=== PATIENT | female | born 1950 | race Caucasian/White ===

== ENCOUNTER 2017-10-04 10:36 | Day surgery (SDC) | payer OTHER ==
--- NOTE | 2017-10-04 10:47 | PDGENHP ---
History & Physical Chief Complaint: BL foot pain History of Present Illness: 66 y/o with h/o BL progressive 1st MTP pain Pertinent Past, Social, Family History: PMH - osteoporosis. SH - No Tobacco. FH - non contrib Relevant Physical Exam: Head - Normocephalic. Chest -CTA. Heart - RRR. Abd - S,NT,ND. EXT - Tender, Decreased ROM BL 1st MTP Cardiorespiratory Assessment: RRR, No murmer Assessment and Plan Assessment: BL Hallux Rigidus BL gastroc Contracture Plan: BL 1st MTP cheilectomy/debrident, implant hemiarthroplasty BL gastroc Recession
[2017-10-04] MEDS ORDERED: CLINDAMYCIN 600 MG/DEXTROSE 50 ML IV ONE (10:51)
[2017-10-04] MEDS ORDERED: LIDOCAINE 1% 2 ML INJ ONE (11:09)
[2017-10-04] MEDS ORDERED: LR 1,000 ML IV ONE (11:16)
[2017-10-04] MEDS ORDERED: LIDOCAINE 1% 2 ML INJ ID PRN (11:16)
[2017-10-04] MEDS ORDERED: BUPIVACAINE 0.5% 10 ML SDV ONE ×3 (11:32→14:08)
[2017-10-04 11:37] VITALS: PULSE 63
[2017-10-04] MEDS ORDERED: fentaNYL 100 MCG/2 ML INJ ONE ×3 (12:06→14:59)
[2017-10-04] MEDS ORDERED: PROPOFOL 200 MG/20 ML VIAL ONE (12:06)
[2017-10-04] MEDS ORDERED: ONDANSETRON 4 MG/2 ML VIAL ONE (12:07)
[2017-10-04] MEDS ORDERED: DEXAMETHASONE 4 MG/ML VIAL ONE (12:07)
[2017-10-04] MEDS ORDERED: LIDOCAINE 2% 5 ML SDV ONE (12:08)
[2017-10-04] MEDS ORDERED: ROCURONIUM 50 MG/5 ML VIAL ONE (12:38)
--- NOTE | 2017-10-04 12:47 | PDANEPAE ---
ANE History of Present Illness bilateral cheilectomy, gastroc release ANE Past Medical History - Cardiovascular History Hx Hypertension: No Hx Arrhythmias: No Hx Chest Pain: No Hx Coronary Artery / Peripheral Vascular Disease: No Hx CHF / Valvular Disease: No Hx Palpitations: No Cardiovascular History Comment: ?heart murmur - Pulmonary History Hx COPD: No Hx Asthma/Reactive Airway Disease: Yes Hx Recent Upper Respiratory Infection: No Hx Oxygen in Use at Home: No Hx Sleep Apnea: No Sleep Apnea Screening Result - Last Documented: Negative Pulmonary History Comment: asthma triggers smoke - Neurologic History Hx Cerebrovascular Accident: No Hx Seizures: No Hx Dementia: No - Endocrine History Hx Diabetes: No - Renal History Hx Renal Disorders: No - Liver History Hx Hepatic Disorders: No - Neurological & Psychiatric Hx Hx Neurological and Psychiatric Disorders: No - Cancer History Hx Cancer: No - Congenital Disorder History Hx Congenital Disorders: No - GI History Hx Gastrointestinal Disorders: Yes Gastrointestinal History Comment: reflux, IBS - Other Health History Other Health History: none - Chronic Pain History Chronic Pain: Yes (lower back pain) - Surgical History Prior Surgeries: shoulder replacement 2013 ANE Review of Systems Review of Systems: - Exercise capacity METS (RN): 5 METS ANE Patient History - Allergies Allergies/Adverse Reactions: Penicillins Allergy (Severe, Verified 09/27/17 10:43) Other-Enter Comments - Home Medications Home medications: home medication list seen and reviewed Home Medications: Aspirin 81mg (*) 09/27/17 [Last Taken 09/27/17] B-12 09/27/17 [Last Taken 09/27/17] Boniva 09/27/17 [Last Taken 09/16/17] Calcium 1,000 + D3 Caplet 09/27/17 [Last Taken 09/27/17] Coq10 09/27/17 [Last Taken 09/27/17] - NPO status NPO Since - Liquids (Date): 10/04/17 NPO Since - Liquids (Time): 07:00 NPO Since - Solids (Date): 10/03/17 NPO Since - Solids (Time): 21:00 - Smoking Hx Smoking Status: Never smoked - Family Anes Hx Family Hx Anesthesia Complications: none ANE Labs/Vital Signs - Vital Signs Blood Pressure: 124/79 Heart Rate: 63 Respiratory Rate: 18 O2 Sat (%): 92 Height: 157.48 cm Weight: 58.06 kg ANE Physical Exam - Airway Neck exam: FROM Mallampati Score: Class 2 Mouth exam: small mouth opening - Pulmonary Pulmonary: no respiratory distress - Cardiovascular Cardiovascular: regular rate and rhythym - ASA Status ASA Status: II ANE Anesthesia Plan Anesthesia Plan: general endotracheal anesthesia Urgent/Emergent Case: Yu velasco completed preop but documented later for safe timely pt care
[2017-10-04] MEDS ORDERED: SUGAMMADEX SODIUM 200 MG/2 ML VIAL IVP ONE (12:50)
[2017-10-04] MEDS ORDERED: KETOROLAC 30 MG/1 ML SDV ONE (12:50)
[2017-10-04 14:32] VITALS: TEMP 97.3
--- NOTE | 2017-10-04 14:32 | POSTOPPROG ---
Post Op Note Date of Operation: 10/04/17 Surgeon: Robetr Marsh Anesthesia: GET(General Endotracheal) Pre-op Diagnosis: BL Hallux Rigidus, BL gastroc contracture Post-op Diagnosis: same Procedure: BL 1st MTP, BL Gastroc Recession, BL medial cuneiform osteotomy Inf/Abcess present in the surg proc area at time of surgery?: No EBL: Minimal
[2017-10-04] MEDS ORDERED: HYDROCODONE/APAP 5/325 TAB PO PRN ×2 (15:03→16:25)
[2017-10-04] MEDS ORDERED: HYDROmorphONE/DILAUDID 1 MG/ML INJ IVP PRN ×2 (15:03→16:25)
[2017-10-04] MEDS ORDERED: LR 500 ML IV PRN ×2 (15:03→16:25)
[2017-10-04] MEDS ORDERED: NALOXONE HCL 0.4 MG/ML INJ IVP PRN ×2 (15:03→16:25)
[2017-10-04] MEDS ORDERED: ALBUTEROL 3 ML DEYVIAL IH PRN ×2 (15:03→16:25)
[2017-10-04] MEDS ORDERED: PROMETHAZINE HCL 25 MG/ML INJ IVP PRN (15:03)
[2017-10-04] MEDS ORDERED: fentaNYL 100 MCG/2 ML INJ IVP PRN ×2 (15:03→16:25)
[2017-10-04] MEDS ORDERED: OXYCODONE/APAP 5/325 TAB PO PRN ×2 (15:03→16:25)
[2017-10-04] MEDS ORDERED: ACETAMINOPHEN 500 MG TAB PO PRN ×2 (15:03→16:25)
[2017-10-04] MEDS ORDERED: ONDANSETRON 4 MG/2 ML VIAL IVP PRN ×2 (15:03→16:25)
--- NOTE | 2017-10-04 15:04 | POSTANESTH ---
Post Anesthetic Evaluation Cardiovascular Status: Normal, Stable Respiratory Status: Normal, Stable Level of Consciousness/Mental Status: Can Participate in Eval Pain Control: Adequate, Prn Tx Ordered Nausea/Vomiting Control: Adequate, Prn Tx Ordered Complications Possibly Related to Anesthesia: None Noted
[2017-10-04 17:13] VITALS: BP 133/91; RESP 15; O2SAT 93
--- NOTE | 2017-10-04 17:19 | GOP ---
[f rep st] OPERATIVE REPORT DATE OF OPERATION: 10/04/2017 SURGEON: Robert Marsh MD ANESTHESIA: General PREOPERATIVE DIAGNOSIS: 1. Bilateral hallux rigidus. 2. Bilateral elevated 1st ray. 3. Bilateral gastrocnemius contracture. POSTOPERATIVE DIAGNOSIS: 1. Bilateral hallux rigidus. 2. Bilateral elevated 1st ray. 3. Bilateral gastrocnemius contracture. PROCEDURE PERFORMED: 1. Bilateral 1st metatarsophalangeal tylectomy and debridement. 2. Bilateral 1st metatarsophalangeal implant hemiarthroplasty (Cartiva). 3. Bilateral gastrocnemius recession. 4. Bilateral medial cuneiform osteotomy. 5. Intraoperative use of fluoroscopy. FINDINGS: ESTIMATED BLOOD LOSS: Minimal. INDICATIONS: Patient is a 66-year-old with a history of bilateral progressive medial forefoot pain. Clinically and radiographically, she is noted to have advanced hallux rigidus. Based on her persist ence of symptoms refractory to nonoperative treatment, she was interested in pursuing operative treat ment. From an operative standpoint, treatment options, including arthrodesis and implant hemiarthrop lasty were discussed with anticipated risks and benefits of both. The patient elected to pursue impl ant hemiarthroplasty (Cartiva). The patient acknowledged she understood the potential risks of the o peration, including but not limited to, bleeding, infection, neurovascular damage including loss of l imb function, malunion, nonunion, need for implant removal and conversion to arthrodesis, persistence of pain and limitations despite operative treatment, and the anesthetic risks. She acknowledged she understood the potential risks, planned procedure, and postoperative plan well, and had all question s answered prior to surgery. She gave her consent for the operative procedure. DESCRIPTION OF PROCEDURE: The patient was brought to the operating room after IV antibiotics were ad ministered. She was placed in a supine position where general anesthetic was administered. Tourniqu ets were placed on bilateral thighs and bilateral lower extremities were prepped and draped in standa rd sterile fashion. Attention was initially directed toward the right. After marking the incisions, an Rommel wrap exsanguination, tourniquet was inflated to 250. Gastrocnemius recession was performed. A longitudinal incision was made along the medial aspect of the lower leg at the level of the mid moore bstance of the gastrocnemius. Skin and subcutaneous tissue were sharply incised. Sharp dissection w as carried through the superficial posterior compartment fascia in line with the skin incision. The interval between the gastroc and soleus was bluntly dissected. Utilizing a speculum for retraction, the anterior tendon of the gastroc was transversely incised. Favorable dorsiflexion was achieved. T he superficial posterior compartment fascia and subcutaneous tissue closed with 3-0 Vicryl suture in an interrupted fashion. Skin was closed with 4-0 nylon interrupted sutures. Attention was then directed toward the 1st MTP joint. Longitudinal incision was made along the dorsa l aspect of the joint. Skin and subcutaneous tissue were sharply incised. Sharp dissection was french ied medial to the EHL tendon, down to the joint capsule. The capsule was reflected medially and late rally. Prominent osteophytes on the dorsal, medial and lateral aspects of the metatarsal head and pr oximal phalanx were removed with a saw and a rongeur. End-stage articular damage was noted. A guide pin from the Cartiva implant was inserted into the medial aspect of the metatarsal head and position confirmed fluoroscopically. A 10 mm reamer was utilized to create a trough for the Cartiva implant. A 10 mm implant was impacted into place, remaining approximately 3 mm proud. The joint was taken t hrough a range of motion, found to have full motion with no impingement. Limited capsular repair was performed with 2-0 Vicryl suture, the subcutaneous tissue was closed with 3-0 Vicryl suture in inter rupted fashion. Skin closed with 4-0 nylon interrupted sutures. Based on the persistent elevation of the 1st ray, medial cuneiform osteotomy was performed. Under fl uoroscopic guidance, location of the mid aspect of the medial cuneiform was located. A longitudinal incision was made overlying this. Sharp dissection was carried medial to the EHL tendon, down to the medial cuneiform. After marking the position of the proposed osteotomy site with a K-wire, a saw wa s utilized to create an osteotomy in a dorsal plantar direction, leaving the plantar cortex intact. Using an osteotome and bone insole cementer, the osteotomy was gapped open. A 7 mm cortical cancellous bone wedge ([place]) was impacted into place. The 1st ray position appeared favorable. A 2.4 mm cortica l screw was then placed in a dorsal distal to proximal plantar direction across the osteotomy site. Fluoroscopic views confirmed favorable hardware and osteotomy positions. Subcutaneous tissue was nancy sed with 3-0 Vicryl suture in interrupted fashion. Skin was closed with 4-0 nylon interrupted suture s. 0.5% Marcaine without epinephrine was injected in the wound sites. The tourniquet was deflated o n the right. Attention was directed toward the left. The left side was addressed in an identical manner to the ri ght. The wounds were dressed with sterile Adaptic, 4 x 4, Kerlix, and an Rommel wrap. The patient loreta rated the procedure well and was taken to the recovery room, extubated, in stable condition postopera tively. Prior to being taken to the recovery room, she was placed in bilateral fracture boots. DRAINS: None. COMPLICATIONS: None. PLAN: The patient will be discharged home, weightbearing as tolerated. /[id number]/MODL
== END 2017-10-04 17:05 | disposition home or self-care (01) ==
LOC: FSGY 10:36
PROVIDERS: ATTEND Orthopaedic Surgery Foot and Ankle Surgery
PROC: 0LNP0ZZ Release Left Lower Leg Tendon, Open Approach (ICD-10-PCS; principal; 2017-10-04 12:15)
PROC: 0LNN0ZZ Release Right Lower Leg Tendon, Open Approach (ICD-10-PCS; principal; 2017-10-04 12:15)
PROC: 0SGN04Z Fusion of Left Metatarsal-Phalangeal Joint with Internal Fixation Device, Open Approach (ICD-10-PCS; principal; 2017-10-04 12:15)
PROC: 0Q8M0ZZ Division of Left Tarsal, Open Approach (ICD-10-PCS; principal; 2017-10-04 12:15)
PROC: 0SGM04Z Fusion of Right Metatarsal-Phalangeal Joint with Internal Fixation Device, Open Approach (ICD-10-PCS; principal; 2017-10-04 12:15)
PROC: 0Q8L0ZZ Division of Right Tarsal, Open Approach (ICD-10-PCS; principal; 2017-10-04 12:15)
DX: M20.21 Hallux rigidus, right foot (principal); M20.22 Hallux rigidus, left foot; M62.462 Contracture of muscle, left lower leg; M62.461 Contracture of muscle, right lower leg; M21.6X1 Other acquired deformities of right foot; M21.6X2 Other acquired deformities of left foot; M81.0 Age-related osteoporosis without current pathological fracture
CPT/HCPCS: C1713; C1762; J1100; J1885; J2405; J2704; J3010